=== PATIENT | female | born 1995 | race Caucasian/White ===

== ENCOUNTER 2019-12-09 05:23 | Inpatient (IN) | payer MEDICAID ==
--- NOTE | 2019-11-28 10:51 | PCM.LDHP ---
L&D History of Present Illness - General Date of Service: 11/28/19 Admit Problem/Dx: Admission Diagnosis/Problem Admission Diagnosis/Problem Source of Information: Patient History Limitations: Reports: No Limitations - History of Present Illness Introduction:: Xenia Domingo is a 24 year old -0-0-1 at 37 weeks 3 days on 2019 by LMP consistent with an 8-week ultrasound who will be 39 weeks 0 days on 12/09/2019 (BINTA 12/16/2019) who presents for scheduled repeat section. She was seen most recently on 11/28/2019 and was doing well at that time. She was having some pelvic pressure and pain and felt like the baby had moved down lower in her pelvis at that time but on cervical exam she was closed. GBS swab was collected at that visit and will be resulted prior to scheduled section. Location, : Reports: Pelvic Quality: Reports: Pressure Severity: Moderate Pain Score: 6 Improves with: Reports: Rest Associated Symptoms: Denies: vaginal bleeding, vaginal discharge, vaginal fluid Present Illness Comments:: Xenia Domingo is a 24 year old -0-0-1 at 37 weeks 3 days on 2019 by LMP consistent with an 8-week ultrasound who will be 39 weeks 0 days on 12/09/2019 ([facility] 12/16/2019) who presents for scheduled repeat section. She has had routine care with Dr. Chen and myself starting at 8 weeks gestational age. Her only complications during this is the development of gallstones during the but not significant enough that she has required surgical management. She did not keep her appointment with Dr. Duke that was originally scheduled. Her only other complication during the has been anxiety with elevated EPDS but has declined medication during the . She received Tdap vaccine on 10/24/2019. This has been complicated by: * Anxiety and depression not requiring medication * Development of gallstones at around 32 weeks gestational age, patient did not keep appointment with consult with general surgery. Plans to follow-up after delivery. * Obesity in with normal weight gain. * History of section x1 due to breech presentation and desires repeat. Declines trial of labor after section. * History of gestational diabetes and previous with normal blood glucose checks throughout the . She did not do a 1 hour glucose tolerance test. * Remote residence from delivering facility as she lives in [place] COMPUTER ANIMATOR history G1: 03/11/2018, primary section due to breech, 8 pounds 1 ounce G2: Current labs Blood type: O+ Antibody screen: Negative First trimester hematocrit/hemoglobin: 46.7%/15.6 on 05/10/2019 Platelets: 243 on 05/10/2019 Urine culture: Mixed bessie suggestive of contamination Rubella status: Immune Hepatitis B surface antigen: Negative RPR: Negative HIV: Negative Gonorrhea: Negative Chlamydia: Negative Anatomy ultrasound: Normal anatomy, anterior placenta, no previa, 48th percentile on most recent ultrasound One hour glucose tolerance test: Declined, normal fingerstick blood glucose testing done throughout Second trimester hematocrit/hemoglobin: 38.6%/12.7 on 09/21/2019 Platelets: 234 on 09/21/2019 GBS status: Collected on 11/28/2019 and will be resulted prior to scheduled section - Related Data Allergies/Adverse Reactions: Allergies Allergy/AdvReac Type Severity Reaction Status Date / Time No Known Allergies Allergy Verified 03/10/18 10:08 Home Medications: Home Meds Acetaminophen/oxyCODONE [Percocet 325-5 MG] 2 tab PO Q4H PRN tablet 03/13/18 [ Rx] Ibuprofen [Motrin] 600 mg PO Q6H PRN tablet 03/13/18 [Rx] Past Medical History COMPUTER ANIMATOR History: Reports: : 2 Para: 1 Endocrine/Metabolic History: Reports: Diabetes, Gestational (History of in first ) - Past Surgical History HEENT Surgical History: Reports: Tonsillectomy Respiratory Surgical History: Reports: Other (See Below) Female Surgical History: Reports: Section (X1 in 2018) Social & Family History - Family History Family Medical History: Noncontributory - Tobacco Use Smoking Status *Q: Former Smoker - Tobacco Core Measures Tobacco Use/Smoking Within Last 30 Days: No Smokeless Tobacco Use in Last 30 Days: No - Alcohol Use Alcohol Use History: No - Recreational Drug Use Recreational Drug Use: No Drug Use in Last 12 Months: No - Living Situation & Occupation Living situation: Reports: Single, with Significant Other H&P Review of Systems - Review of Systems: Review Of Systems: See Below General: Denies: Fever, Chills, Malaise, Weakness HEENT: Denies: Headaches, Rhinitis, Post Nasal Drip, Sinus Congestion, Sore Throat, Visual Changes Pulmonary: Denies: Shortness of Breath, Wheezing, Cough Cardiovascular: Denies: Chest Pain, Palpitations, Dyspnea on Exertion, Orthopnea Gastrointestinal: Denies: Abdominal Pain, Constipation, Diarrhea, Nausea, Vomiting Genitourinary: Denies: Dysuria, Frequency, Burning, Pain, Urgency Musculoskeletal: Reports: Back Pain (and hip pain of ) Skin: Denies: Rash, Lesions Psychiatric: Reports: Anxiety. Denies: Depression Hematologic/Lymphatic: Denies: Anemia L&D Exam - Exam Exam: See Below - Vital Signs Vital Signs: BP: 102/66 Weight: 117.843 kg - OB Specific Fundal Height In cm: 38 Contraction Duration (sec): 0 Contraction Frequency (min): 0 Contraction Intensity: Mild Movement: Active Heart Tones: Present Heart Tones per Min: 158 - Shay Score Shay Score Cervix Position: Midposition Shay Score Consistency: Firm Shay Score Effacement: 0-30% (0%) Shay Score Dilation: Closed Shay Score Infant's Station: -3 (-5) Shay Score Total: 1 - Exam General: Alert, Oriented HEENT: Conjunctiva Clear, EOMI Neck: Supple, Trachea Midline Lungs: Clear to Auscultation, Normal Respiratory Effort Cardiovascular: Regular Rate, Regular Rhythm GI/Abdominal Exam: Soft, Non-Tender, No Distention, Other (Gravid). No: Guarding, Rigid, Rebound Genitourinary: Normal external exam Extremities: Non-Tender, Pedal Edema (trace) Skin: Warm, Dry, Intact Psychiatric: Alert, Normal Affect, Normal Mood - Problem List (1) 39 weeks gestation of SNOMED Code(s): 71503011 ICD Code: Z3A.39 - 39 WEEKS GESTATION OF Status: Acute (2) History of delivery SNOMED Code(s): 852099017 ICD Code: Z98.891 - HISTORY OF UTERINE SCAR FROM PREVIOUS SURGERY Status: Acute (3) History of delivery, currently SNOMED Code(s): 130228520, 113939057 ICD Code: O34.219 - MATERNAL CARE FOR UNSP TYPE SCAR FROM PREVIOUS DEL Status: Acute (4) History of gestational diabetes in prior , currently in third trimester SNOMED Code(s): 324101406, 197473189 ICD Code: O09.293 - SUPRVSN OF PREG W POOR REPRODCTV OR OBSTET HX, THIRD TRI ; Z86.32 - PERSONAL HISTORY OF GESTATIONAL DIABETES Status: Acute (5) Obesity affecting in third trimester SNOMED Code(s): 727217794193, 808271317043 ICD Code: O99.213 - OBESITY COMPLICATING , THIRD TRIMESTER Status : Acute Problem List Initiated/Reviewed/Updated: Yes Assessment/Plan Comment:: Admit to inpatient after section NST prior to section Place IV and have Lactated Ringer's at 125 ml/hr SCDs for DVT prophylaxis Nothing by mouth Activity as tolerated Plan for spinal injection for anesthesia CBC, RPR and type and screen prior to surgery Plans to breast-feed after delivery Plan for Ancef 2 g IV for antibiotic prophylaxis prior to surgery. We will plan to recheck patient's weight prior to surgery to see if she is greater than 120 kg and would require 3 g of Ancef for antibiotic prophylaxis. Ranjan Wasserman M.D. 10:59 AM 11/28/2019
[~2019-12-09 05:23] MED LIST: Citric Acid/Sodium Citrate Solution 30 ML Cup PO SCH; Lactated Ringers 1,000 ML IV SCH; Metoclopramide 10 MG/2 ML SDV IVPUSH SCH; Oxytocin/Lactated Ringers 10 UNIT/1,000 ML BAG IV SCH; Sodium Chloride 0.9% 10 ML Syringe FLUSH PRN
[2019-12-09] MEDS ORDERED: ceFAZolin 2 GM in Premix Bag 1 BAG IV SCH (06:00)
[2019-12-09] MEDS ORDERED: Bupivacaine 0.5% 30 ML SDV ONE (07:06)
[2019-12-09] MEDS ORDERED: Morphine PF 1 MG/ML Amp ONE (07:14)
[2019-12-09] MEDS ORDERED: Oxytocin 10 Units/1 ML SDV ONE (07:16)
--- NOTE | 2019-12-09 07:42 | PCM.PREANE ---
Preanesthetic Assessment - Anesthesia/Transfusion/Family Hx Anesthesia History: Prior Anesthesia Without Reaction Transfusion History: No Prior Transfusion(s) - Review of Systems General: No Symptoms Pulmonary: No Symptoms Cardiovascular: No Symptoms Gastrointestinal: No Symptoms Neurological: No Symptoms Other: Reports: None - Physical Assessment NPO Status Date: 12/08/19 NPO Status Time: 21:00 Vital Signs: Last Vital Signs Temp 97.3 F 12/09/19 06:07 Pulse 85 12/09/19 06:07 Resp 16 12/09/19 06:07 BP 130/78 12/09/19 06:07 Pulse Ox 98 12/09/19 06:07 Height: 1.75 m Weight: 117.843 kg ASA Class: 3 Mental Status: Alert & Oriented x3 Dentition: Reports: Normal Dentition Thyro-Mental Finger Breadths: 3 Mouth Opening Finger Breadths: 3 ROM/Head Extension: Full Lungs: Clear to Auscultation, Normal Respiratory Effort Cardiovascular: Regular Rate, Regular Rhythm - Lab Values: Laboratory Last Values WBC 9.17 K/mm3 (3.98-10.04) 12/09/19 05:53 RBC 4.49 M/mm3 (3.98-5.22) 12/09/19 05:53 Hgb 12.5 gm/dl (11.2-15.7) 12/09/19 05:53 Hct 38.1 % (34.1-44.9) 12/09/19 05:53 MCV 84.9 fl (79.4-94.8) 12/09/19 05:53 MCH 27.8 pg (25.6-32.2) 12/09/19 05:53 MCHC 32.8 g/dl (32.2-35.5) 12/09/19 05:53 RDW Std Deviation 41.5 fL (36.4-46.3) 12/09/19 05:53 Plt Count 188 K/mm3 (182-369) 12/09/19 05:53 MPV 10.0 fl (9.4-12.3) 12/09/19 05:53 Neut % (Auto) 70.8 % (34.0-71.1) 12/09/19 05:53 Lymph % (Auto) 22.0 % (19.3-51.7) 12/09/19 05:53 [place] % (Auto) 6.2 % (4.7-12.5) 12/09/19 05:53 Eos % (Auto) 0.7 (0.7-5.8) 12/09/19 05:53 Baso % (Auto) 0.1 % (0.1-1.2) 12/09/19 05:53 Neut # (Auto) 6.49 K/mm3 (1.56-6.13) H 12/09/19 05:53 Lymph # (Auto) 2.02 K/mm3 (1.18-3.74) 12/09/19 05:53 [place] # (Auto) 0.57 K/mm3 (0.24-0.36) H 12/09/19 05:53 Eos # (Auto) 0.06 K/mm3 (0.04-0.36) 12/09/19 05:53 Baso # (Auto) 0.01 K/mm3 (0.01-0.08) 12/09/19 05:53 Manual Slide Review Normal smear 12/09/19 05:53 POC Glucose 86 mg/dL (70-105) 12/09/19 05:54 Urine Opiates Screen Negative (OGVFZB=126) 12/09/19 05:40 Ur Buprenorphine Scrn Negative (CUTOFF=10) 12/09/19 05:40 Ur Oxycodone Screen Negative (KFV7DU=588) 12/09/19 05:40 Urine Methadone Screen Negative (AUBGUY=308) 12/09/19 05:40 Ur Propoxyphene Screen Negative (VEQGJS=675) 12/09/19 05:40 Ur Barbiturates Screen Negative (PQDFBI=015) 12/09/19 05:40 Ur Tricyclics Screen Negative (IRGMVK=799) 12/09/19 05:40 Ur Phencyclidine Scrn Negative (CUTOFF=25) 12/09/19 05:40 Ur Amphetamine Screen Negative (QXBCRY=217) 12/09/19 05:40 U Methamphetamines Scrn Negative (HKZKMV=933) 12/09/19 05:40 U Benzodiazepines Scrn Negative (CWTUCE=320) 12/09/19 05:40 U Cocaine Metab Screen Negative (YPIJNJ=725) 12/09/19 05:40 U Marijuana (THC) Screen Negative (CUTOFF=50) 12/09/19 05:40 - Allergies Allergies/Adverse Reactions: Allergies Allergy/AdvReac Type Severity Reaction Status Date / Time No Known Allergies Allergy Verified 12/08/19 14:08 - Acknowledgements Anesthesia Type Planned: Spinal Pt an Appropriate Candidate for the Planned Anesthesia: Yes Alternatives and Risks of Anesthesia Discussed w Pt/Guardian: Yes Pt/Guardian Understands and Agrees with Anesthesia Plan: Yes PreAnesthesia Questionnaire [employer] SUPERVISOR History: Reports: Psychiatric History: Reports: Depression Endocrine/Metabolic History: Reports: Diabetes, Gestational, Obesity/BMI 30+ - Past Surgical History HEENT Surgical History: Reports: Tonsillectomy Respiratory Surgical History: Reports: Other (See Below) Female Surgical History: Reports: Section - SUBSTANCE USE Smoking Status *Q: Current Every Day Smoker Tobacco Use Within Last Twelve Months: Cigarettes Second Hand Smoke Exposure: Yes Recreational Drug Use History: No - HOME MEDS Home Medications: Home Meds Pnv No.95/Ferrous Fum/Folic AC [ Vitamins Tablet] 1 tab PO DAILY [History] - CURRENT (IN HOUSE) MEDS Current Meds: Current Medications Citric Acid/Sodium Citrate (Bicitra Solution) 30 ml PO .ONETIME ENOCH Cefazolin Sodium/Dextrose 2 gm (/ Premix) 50 mls @ 100 mls/hr IV .ONETIME ENOCH Lactated Ringer's (Ringers, Lactated) 1,000 mls @ 125 mls/hr IV ASDIRECTED ENOCH Oxytocin/Lactated Ringer's (Pitocin In Lr 10 Units/1,000 Ml) 10 unit in 1,000 mls @ 100 mls/hr IV ASDIRECTED ENOCH Metoclopramide HCl (Reglan) 10 mg IVPUSH .ONETIME ENOCH Sodium Chloride (Saline Flush) 10 ml FLUSH ASDIRECTED PRN PRN Reason: Keep Vein Open Discontinued Medications Bupivacaine HCl (Marcaine 0.5%) Confirm Administered Dose 30 ml .ROUTE .STK-MED ONE Stop: 12/09/19 07:07 Morphine Sulfate (Duramorph Pf) Confirm Administered Dose 1 mg .ROUTE .STK-MED ONE Stop: 12/09/19 07:15 Oxytocin (Pitocin) Confirm Administered Dose 20 unit .ROUTE .STK-MED ONE Stop: 12/09/19 07:17
[2019-12-09] MEDS ORDERED: ceFAZolin 1 GM Vial ONE (08:00)
[2019-12-09] MEDS ORDERED: Lactated Ringers 2,000 ML ONE (08:20)
[2019-12-09] MEDS ORDERED: Ondansetron 4 MG/2 ML SDV IVPUSH PRN (08:32)
[2019-12-09] MEDS ORDERED: fentaNYL 100 MCG/2 ML SDV IVPUSH PRN (08:32)
[2019-12-09] MEDS ORDERED: diphenhydrAMINE 50 MG/ML SDV IVPUSH PRN ×2 (08:32→10:37)
[2019-12-09] MEDS ORDERED: Ketorolac 30 MG/ML SDV ONE (08:38)
--- NOTE | 2019-12-09 09:10 | PCM.POSTAN ---
POST ANESTHESIA ASSESSMENT - MENTAL STATUS Mental Status: Alert, Oriented - VITAL SIGNS Vital Signs: Last Vital Signs Temp 97.0 F 12/09/19 09:07 Pulse 66 12/09/19 09:07 Resp 14 12/09/19 09:07 BP 101/58 L 12/09/19 09:07 Pulse Ox 100 12/09/19 09:07 - RESPIRATORY Respiratory Status: Respiratory Rate WNL, Airway Patent, O2 Saturation Stable - CARDIOVASCULAR CV Status: Pulse Rate WNL, Blood Pressure Stable - GASTROINTESTINAL GI Status: No Symptoms - PAIN Pain Score: 0 (post SAB) - POST OP HYDRATION Hydration Status: Adequate & Stable
--- NOTE | 2019-12-09 10:11 | PCM.OPNOTE ---
- General Post-Op/Procedure Note Date of Surgery/Procedure: 12/09/19 Operative Procedure(s): Repeat section Findings: Live female infant delivered in vertex presentation on 12/09/2019 at 08:16. Apgars were 8 and 9. weight was 3320 g (7 pounds 5.1 ounces). Grossly normal-appearing uterus, bilateral fallopian tubes and ovaries. Pre Op Diagnosis: History of section, desires repeat section, 39 weeks gestational age Post-Op Diagnosis: Same Anesthesia Technique: Spinal Primary Surgeon: Ranjan Wasserman Anesthesia Provider: Ronny Ceja Income Auditor: Ramy Brown Reason Income Auditor Was Necessary: Patient safety and reduction of morbidity and mortality. Role of Income Auditor: Retraction for visualization. Pathology: None Fluid Replacement, Intraop: 2,300 Output, Urine Amount: 200 EBL in mLs: 500 Complications: None Condition: Good Free Text/Narrative:: Intake & Output 12/08/19 12/09/19 12/09/19 22:59 06:59 14:59 Output Total 200 Balance -200 Procedure in Detail: The patient was seen on labor and delivery in room #3 and the risks, benefits and complications were discussed with the patient. The patient desired to proceed with section and appropriate consents were reviewed. The patient was taken to operating room #1. A Time Out was held and the patient was identified using 2 identifiers and the procedure was confirmed. The patient was given spinal anesthesia and was placed in dorsal supine position with leftward tilt. She was given 2 g Ancef for antibiotic prophylaxis. The patient was prepped and draped in the usual sterile manner. The abdominal skin was tested and the spinal anesthesia was found to be adequate. The skin was injected with 0.5% marcaine for local anesthesia. A Pfannenstiel skin incision was made and carried down through the subcutaneous tissue to the fascia with the scapel. The fascia was nicked in the midline using a scalpel and the fascial incision was extended transversely with Padgett scissors. The inferior aspect of the fascia was grasped with Britt clamps and tented upwards. The fascia was from the underlying rectus muscle bluntly and sharply with Padgett scissors. Attention was then turned to the superior aspect of the fascia and was grasped using Britt clamps and tented upwards. The underlying rectus muscle was dissected off bluntly and sharply with Padgett scissors. The peritoneum was identified and entered sharply using Padgett scissors. The utero-vesical peritoneal reflection was identified and the peritoneum was incised with [place]um scissors and transversely extended. The bladder blade was inserted and the lower uterine segment was identified. A low transverse uterine incision was made sharply with a scalpel and extended laterally bluntly. The 's head was brought to the uterine incision, the bladder blade was removed and the was delivered atraumatically. On 2019 a live female was delivered in vertex position at 08:16, wt of 3320 grams, 7 pounds and 5.1 ounces. APGARS were 8 & 9. The nose and mouth were suctioned with bulb suction, the cord was doubly clamped and cut and was transferred to the awaiting button attaching machine operator, Dr. Carpenter. A segment of the umbilical cord was collected for drug screening for the infant. The placenta was removed intact and appeared normal with a three vessel cord. The uterus was exteriorized and the uterine cavity was cleaned using lap sponges. The hysterotomy was closed with a running locked suture of 0 -Vicryl. A second suture of 0-Vicryl was used to imbricate the hysterotomy. The hysterotomy was hemostatic. The uterus, tubes and ovaries appeared overall normal. The uterus was then returned into the abdominal cavity. The hysterotomy was noted to have an area of bleeding just to the right of midline of the incision that was made hemostatic with 2 [id number] sutures using 0 Vicryl. The hysterotomy was noted to remain hemostatic inside the abdominal cavity after the [id number] sutures. The fascia was noted to be hemostatic and the fascia was then reapproximated with running sutures of 0- Vicryl. The subcutaneous fat was reapproximated using 0 Vicryl. The skin was reapproximated using 4-0 Monocryl and Steri-strips were applied over the incision. Instrument, sponge, and needle counts were correct prior to the abdominal closure and at the conclusion of the case.
[2019-12-09] MEDS ORDERED: Ondansetron 4 MG Tab.DIS PO PRN (10:37)
[2019-12-09] MEDS ORDERED: Oxytocin/Lactated Ringers 10 UNIT/1,000 ML BAG IV SCH (10:37)
[2019-12-09] MEDS ORDERED: Dextrose 5%-Lactated Ringers 1,000 ML IV SCH (10:37)
[2019-12-09] MEDS ORDERED: Acetaminophen/oxyCODONE 325-5 MG Tab PO PRN (10:37)
[2019-12-09] MEDS ORDERED: Magnesium Hydroxide 400 MG/5 ML Susp 30 ML Cup PO PRN (10:37)
[2019-12-09] MEDS ORDERED: Naloxone 0.4 MG/ML SDV IVPUSH PRN (10:37)
[2019-12-09] MEDS ORDERED: ePHEDrine 50 MG/ML SDV IVPUSH PRN (10:37)
[2019-12-09] MEDS ORDERED: Hydrocortisone 1% Crm 30 GM Tube TOP PRN (13:33)
--- NOTE | 2019-12-09 13:51 | PCM.SN.2 ---
- Free Text/Narrative Note: Postop check POD #0 s/p repeat section S: Patient overall doing well. No significant concerns. Pain is overall controlled with Toradol. Denies any nausea or vomiting and is tolerating a regular diet. Reports that she is having a slight reaction under her breasts after using chlorhexidine skin wipes last evening and this morning prior to her surgery. Also has concerns about the amount of discharge from the incision. O: Vital Signs - 8 hr 12/09/19 12/09/19 12/09/19 06:07 09:07 09:25 Temperature 36.3 C Temperature [ 36.1 C 36.5 C Temporal] Pulse, 85 Peripheral Pulse, 66 60 Peripheral [ Left Pulse Oximetry] Respiratory 16 14 20 Rate Blood Pressure 130/78 Blood Pressure 101/58 L 97/57 L [Right Upper Arm] O2 Sat by Pulse 98 100 100 Oximetry O2 Sat by Pulse 100 Oximetry [Room Air] 12/09/19 12/09/19 12/09/19 09:40 09:55 10:10 Temperature Temperature [ 36.3 C 36.2 C 36.1 C Temporal] Pulse, Peripheral Pulse, 58 L 59 L 54 L Peripheral [ Left Pulse Oximetry] Respiratory 15 13 13 Rate Blood Pressure Blood Pressure 120/89 99/59 L 101/83 [Right Upper Arm] O2 Sat by Pulse 99 99 98 Oximetry O2 Sat by Pulse 98 Oximetry [Room Air] Physical exam General: No acute distress, alert and oriented Lungs: Unlabored breathing Abdomen: Soft, nontender, nondistended Incision: Dressing in place and intact, dressing soaked with mixture of serosanguineous fluid that is mostly irrigation. The dressing was removed and the incision appeared to be intact with Steri-Strips in place. No active bleeding from the incision. A new dressing was placed with Telfa pad, gauze dressing and ABD pad and covered with Tegaderm. Extremities: SCDs in place, no significant edema or tenderness noted A/P 24-year-old -0-0-2 status post repeat section POD #0 Patient appears to be healing well Incisional dressing replaced due to saturation of original dressing No active bleeding or separation of the incision noted on exam Recommend for her to use hydrocortisone cream on the areas with rash Patient may use nicotine patch if she has withdrawal symptoms We will continue to monitor vitals closely and plan to recheck CBC in the morning Ranjan Wasserman MD 1:50 PM 12/09/2019
[2019-12-09] MEDS: Ketorolac 30 MG/ML SDV IVPUSH SCH ×2 (15:02→20:51)
[2019-12-09] MEDS: Docusate Sodium 100 MG Cap PO SCH ×2 (15:03→20:50)
[2019-12-10] MEDS: Ketorolac 30 MG/ML SDV IVPUSH SCH (03:47)
--- NOTE | 2019-12-10 08:10 | PCM.SN.2 ---
- Free Text/Narrative Note: note: Start operative day #1. Patient is doing well in the period. Minimal lochia, voiding well, ambulated without problems. Nursing without concerns. Patient is afebrile, vital signs are stable Abdomen is flat, soft, uterus is below the umbilicus and is firm and nontender. Surgeon appears to be intact. Steri-Strips in place. Dry and without evidence of hematoma, seroma or infection. Legs are nontender. Hemoglobin is 11.2. Platelets are 169,000. Assessment: recovery going well on postoperative day #1. Plan: Routine care. Patient be discharged home within the next 24-48 hours.
[2019-12-10] MEDS ORDERED: Ibuprofen 600 MG Tab PO PRN (09:00)
[2019-12-10] MEDS ORDERED: Prenatal Multivitamin with Calcium/Folic Acid/Iron Tab PO SCH (09:00)
[2019-12-10] MEDS: Docusate Sodium 100 MG Cap PO SCH (09:18)
[2019-12-10] MEDS: Acetaminophen/oxyCODONE 325-5 MG Tab PO PRN ×2 (09:18→14:00)
--- NOTE | 2019-12-10 13:35 | PCM48HPAN ---
Post Anesthesia Note - EVALUATION WITHIN 48HRS OF ANESTHETIC Vital Signs in Normal Range: Yes Patient Participated in Evaluation: Yes Respiratory Function Stable: Yes Airway Patent: Yes Cardiovascular Function Stable: Yes Hydration Status Stable: Yes Pain Control Satisfactory: Yes Nausea and Vomiting Control Satisfactory: Yes Mental Status Recovered: Yes Vital Signs: Last Vital Signs Temp 97.0 F 12/10/19 08:11 Pulse 68 12/10/19 08:11 Resp 14 12/10/19 08:11 BP 105/61 12/10/19 08:11 Pulse Ox 98 12/10/19 08:11 - COMMENTS/OBSERVATIONS Free Text/Narrative:: Patient on her postoperative day 1. Patient has stated understanding about possible backaches following spinal anesthesia. Patient denies any headache, lightheadedness or backache at this time. Ambulating, no difficulty urinating.
== END 2019-12-10 16:15 | disposition home or self-care (01) | DRG 788 ==
LOC: JD.OB 05:23
PROVIDERS: ADMIT Obstetrics & Gynecology; ATTEND Obstetrics & Gynecology
PROC: 10D00Z1 Extraction of Products of Conception, Low, Open Approach (ICD-10-PCS; principal; 2019-12-09)
DX: O34.211 Maternal care for low transverse scar from previous cesarean delivery (principal); O99.214 Obesity complicating childbirth; E66.9 Obesity, unspecified; Z37.0 Single live birth; Z3A.39 39 weeks gestation of pregnancy; Z86.32 Personal history of gestational diabetes
CPT/HCPCS: 01961; 36415; 59025; 80306; 82962; 85025; 86592; 86850; 86900; 86901; 94762; A9270-GY; J0690; J1885; J2274; J2590; J2765; J3490; J7120; J7121